=== PATIENT | male | born 1955 | race Caucasian/White ===

== ENCOUNTER 2020-01-31 08:15 | Outpatient (REF) | payer BC, SELFPAY ==
[2020-01-31 08:59] LABS: Basophils Absolute Auto 0.1 X10*3/uL (0.0-0.2); Basophils Percent Auto 0.9 % (0-2); Eosinophils Absolute Auto 0.1 X10*3/uL (0.0-0.4); Hematocrit 43.5 % (42-52); Hemoglobin 15.3 g/dl (14.0-18.0); Imm Gran Abs Auto 0.01 X10*3/uL (0.00-0.03); Imm Gran Pct Auto 0.2 % (0.0-0.4); Lymphocytes Absolute Auto 1.9 X10*3/uL (1.2-4.9); Lymphocytes Percent Auto 34.2 % (20-40); MANUAL DIFF FLAG NO; Mean Corpuscular HGB Conc 35.2 g/dl (31.0-36.0); Mean Corpuscular Hemoglobin 31.7 pg (27.0-33.0); Mean Corpuscular Volume 90.2 fL (80-98); Mean Platelet Volume 10.8 fL (9.4-12.4); Monocytes Absolute Auto 0.5 X10*3/uL (0.1-1.2); Monocytes Percent Auto 9.1 % (2-11); Neutrophils Percent Auto 53.6 % (45-73); Platelet Count 145 X10*3/uL (160-400); Red Blood Count 4.82 X10*6/uL (4.60-5.80); Red Cell Distribution Width 12.2 % (11.0-16.0); White Blood Count 5.6 X10*3/uL (4.8-10.8)
[2020-01-31 09:07] LABS: Glucose Urine UA NEG (NEG); Leukocyte Esterase Urine NEG (NEG); Nitrite Urine NEG (NEG); Urine Blood NEG (NEG); Urine Ketones NEG (NEG); Urine Protein NEG (NEG-TRACE)
[2020-01-31 09:08] LABS: Appearance Urine CLEAR; Color Urine YELLOW
[2020-01-31 09:46] LABS: Alanine Aminotransferase 29 U/L (0-40); Albumin Level 4.3 g/dL (3.5-5.0); Alkaline Phosphatase 51 U/L (39-117); Anion Gap 13 (12-20); Aspartate Amino Transferase 23 U/L (5-37); Bilirubin Direct 0.3 mg/dL (0.0-0.5); Bilirubin Total 0.9 mg/dL (0.0-1.0); Blood Urea Nitrogen 12 mg/dL (9-16); Carbon Dioxide 25 mmol/L (22-29); Chloride 107 mmol/L (96-108); Cholesterol 149 mg/dL; Glucose Fasting 103 mg/dL (60-99); HDL Cholesterol 40 mg/dL; LDL Cholesterol Calculated 90 mg/dl; Potassium 4.1 mmol/l (3.3-5.1); Sodium 141 mmol/L (135-145); Total Protein 6.8 g/dL (6.5-8.0); Triglycerides 96 mg/dL
[2020-01-31 10:06] LABS: Thyroid Stimulating Hormone 0.54 uIU/mL (0.32-4.0)
== END 2020-01-31 08:16 | disposition home or self-care (01) ==
LOC: HO.LAB 08:15
PROVIDERS: PCP Internal Medicine; Visit Provider Internal Medicine Cardiovascular Disease
DX: I25.10 Atherosclerotic heart disease of native coronary artery without angina pectoris (principal); I10 Essential (primary) hypertension; E78.2 Mixed hyperlipidemia
CPT/HCPCS: 36415; 80051; 80061; 80076; 81003; 82947; 83735; 84443; 84520; 85025

== ENCOUNTER 2021-12-27 07:06 | Outpatient (REF) | payer BC, SELFPAY ==
[2021-12-27 07:28] LABS: MANUAL DIFF FLAG NO
[2021-12-27 07:42] LABS: Basophils Absolute Auto 0.1 X10*3/uL (0.0-0.2); Basophils Percent Auto 1.3 % (0-2); Eosinophils Absolute Auto 0.2 X10*3/uL (0.0-0.4); Eosinophils Percent Auto 3.7 % (0-4); Hematocrit 46.7 % (42.0-52.0); Imm Gran Abs Auto 0.02 X10*3/uL (0.00-0.03); Imm Gran Pct Auto 0.3 % (0.0-0.4); Lymphocytes Absolute Auto 2.2 X10*3/uL (1.2-4.9); Lymphocytes Percent Auto 37.4 % (20-40); Mean Corpuscular HGB Conc 34.3 g/dl (31.0-36.0); Mean Corpuscular Hemoglobin 30.7 pg (27.0-33.0); Mean Corpuscular Volume 89.6 fL (80.0-98.0); Mean Platelet Volume 10.8 fL (9.4-12.4); Monocytes Absolute Auto 0.6 X10*3/uL (0.1-1.2); Neutrophils Absolute Auto 2.8 x10*3/uL (2.0-8.3); Neutrophils Percent Auto 47.3 % (45-73); Platelet Count 149 X10*3/uL (160-400); Red Blood Count 5.21 X10*6/uL (4.60-5.80)
[2021-12-27 07:51] LABS: Estimated Average Glucose 114 mg/dL; Hemoglobin A1c % 5.6 %
[2021-12-27 08:11] LABS: Alanine Aminotransferase 24 U/L (0-40); Albumin Level 4.2 g/dL (3.5-5.0); Alkaline Phosphatase 54 U/L (39-117); Anion Gap 16 (12-20); Aspartate Amino Transferase 24 U/L (5-37); Blood Urea Nitrogen 18 mg/dL (9-16); Calcium 9.3 mg/dL (8.4-10.2); Carbon Dioxide 23 mmol/L (22-29); Chloride 107 mmol/L (96-108); Cholesterol 180 mg/dL; Estimated Glomerular Filt Rate > 60; Glucose Random 97 mg/dL (60-115); HDL Cholesterol 39 mg/dL; LDL Cholesterol Calculated 119 mg/dl; Potassium 4.3 mmol/L (3.3-5.1); Sodium 142 mmol/L (135-145); Total Protein 6.9 g/dL (6.5-8.0); Triglycerides 111 mg/dL
== END 2021-12-27 07:07 | disposition home or self-care (01) ==
LOC: HO.LAB 07:06
PROVIDERS: PCP Internal Medicine; Visit Provider Internal Medicine Cardiovascular Disease
DX: I10 Essential (primary) hypertension (principal)
CPT/HCPCS: 36415; 80053; 80061; 83036; 85025

== ENCOUNTER 2022-03-17 07:33 | Outpatient (REF) | payer BC, SELFPAY ==
[2022-03-17 09:41] LABS: Cholesterol 144 mg/dL; HDL Cholesterol 40 mg/dL; LDL Cholesterol Calculated 84 mg/dl; Triglycerides 100 mg/dL
== END 2022-03-17 07:34 | disposition home or self-care (01) ==
LOC: HO.LAB 07:33
PROVIDERS: PCP Internal Medicine; Visit Provider Nurse Practitioner Family
DX: I10 Essential (primary) hypertension (principal)
CPT/HCPCS: 36415; 80061

== ENCOUNTER 2022-08-03 07:04 | Outpatient (REF) | payer BC, SELFPAY ==
[2022-08-03 08:06] LABS: Cholesterol 108 mg/dL; HDL Cholesterol 36 mg/dL; LDL Cholesterol Calculated 54 mg/dl; Triglycerides 91 mg/dL
== END 2022-08-03 07:05 | disposition home or self-care (01) ==
LOC: HO.LAB 07:04
PROVIDERS: PCP Internal Medicine; Visit Provider Nurse Practitioner Family
DX: I10 Essential (primary) hypertension (principal)
CPT/HCPCS: 36415; 80061

== ENCOUNTER 2022-10-24 07:07 | Outpatient (REF) | payer BC, SELFPAY ==
[2022-10-24 07:17] LABS: MANUAL DIFF FLAG NO
[2022-10-24 08:28] LABS: Basophils Percent Auto 0.7 % (0-2); Eosinophils Percent Auto 0.5 % (0-4); Hemoglobin 14.7 g/dl (14.0-18.0); Imm Gran Abs Auto 0.04 X10*3/uL (0.00-0.03); Imm Gran Pct Auto 0.7 % (0.0-0.4); Lymphocytes Absolute Auto 0.7 X10*3/uL (1.2-4.9); Lymphocytes Percent Auto 11.2 % (20-40); Mean Corpuscular HGB Conc 34.2 g/dl (31.0-36.0); Mean Corpuscular Volume 90.7 fL (80.0-98.0); Mean Platelet Volume 10.8 fL (9.4-12.4); Monocytes Absolute Auto 0.9 X10*3/uL (0.1-1.2); Monocytes Percent Auto 14.6 % (2-11); Neutrophils Absolute Auto 4.2 x10*3/uL (2.0-8.3); Neutrophils Percent Auto 72.3 % (45-73); Platelet Count 120 X10*3/uL (160-400); Red Blood Count 4.74 X10*6/uL (4.60-5.80); Red Cell Distribution Width 12.1 % (11.0-16.0); White Blood Count 5.8 X10*3/uL (4.8-10.8)
[2022-10-24 08:56] LABS: Alanine Aminotransferase 32 U/L (0-40); Alkaline Phosphatase 57 U/L (39-117); Anion Gap 13 (12-20); Aspartate Amino Transferase 26 U/L (5-37); Blood Urea Nitrogen 13 mg/dL (9-16); Carbon Dioxide 23 mmol/L (22-29); Chloride 108 mmol/L (96-108); Estimated Glomerular Filt Rate > 60; Glucose Fasting 104 mg/dL (60-99); Potassium 3.8 mmol/L (3.3-5.1); Sodium 140 mmol/L (135-145); Total Protein 6.8 g/dL (6.5-8.0)
[2022-10-24 09:14] LABS: Prostate Specific Antigen Scr 2.87 ng/mL (<0.05-4.0)
[2022-10-24 09:19] LABS: Thyroid Stimulating Hormone 0.27 uIU/mL (0.32-4.0)
== END 2022-10-24 07:08 | disposition home or self-care (01) ==
LOC: HO.LAB 07:07
PROVIDERS: PCP Internal Medicine; Visit Provider Internal Medicine
DX: Z00.00 Encounter for general adult medical examination without abnormal findings (principal); Z12.5 Encounter for screening for malignant neoplasm of prostate; E03.9 Hypothyroidism, unspecified; N28.9 Disorder of kidney and ureter, unspecified; D64.9 Anemia, unspecified
CPT/HCPCS: 36415; 80053; 84153; 84443; 85025

== ENCOUNTER 2022-10-26 10:43 | Outpatient (AMB) | payer BC, SELFPAY ==
--- NOTE | 2022-10-26 04:50 | MHC.OFFVIS ---
Intake Intake Visit Reasons: Frequency of Micturition Intake Note: NEW Patient presents today to established treatment for Frequency of Micturition: Meds- None Allergies to Antibiotic- No Known Allergies Blood Thinner- Aspirin Unable to void, PVR- 0ml Communication Analyst Required: No Accompanied by: Self / Same As Patient Allergies No Known Allergies Allergy (Verified 10/26/22 10:50) HPI HPI Comments History of Present Illness Details Elieser is a 67-year-old male who presents today to the office to establish as a new patient for an evaluation of frequency of micturition. 10/26/2022? Elieser is present today for an evaluation of frequency of micturition. I reviewed the PSA results from 10/24/2022 revealed 2.87. He reports intermittent nocturia. He states that he has urinary frequency, denies dysuria He is unable to give a urine specimen today. Bladder scan PVR - 0 mL PSA 10/24/22- 2.87 Plan: Renal US. Discussed behavioral modifications. Avoid dietary bladder irritants. Discussed medications to include but not limited to alpha blockers; will hold on these for now, pending lifestyle changes. Follow up in 3 months to discuss the US results. [facility] Surgical History History of heart artery stent Social History Housing: House Alcohol intake: never Patient Tobacco Use Status: Never used Tobacco e-Cigarette/Vaping Use: Never Used Second Hand Smoke Exposure: No service: No Current occupational status: employed Current occupation: sales Cognitive needs: No Hearing needs: No Vision needs: No Review of Systems Const All systems reviewed & are unremarkable except as noted in HPI and below Reports no additional complaints Eyes Reports no additional complaints ENT Reports no additional complaints Card Denies dyspnea Resp Denies cough and Denies dyspnea GI Reports no additional complaints Musc Reports no additional complaints Skin/Breast Denies rash and Denies unusual bruising Neuro Reports no additional complaints Psych Reports no additional complaints Endo Reports no additional complaints Ahsan/Lymph Reports no additional complaints Aller/Immun Reports no additional complaints Physical Exam Const General: healthy appearing, no acute distress and well developed Orientation/consciousness: patient oriented x3 HEENT Head: Yes normocephalic and Yes atraumatic Eyes Conjunctivae: conjunctivae normal Neck Neck: Yes normal visual inspection Chest Chest palpation & inspection: normal inspection of the chest Resp Effort & Inspection: normal respiratory effort Cardio Rate: regular rate GI Inspection: Yes normal to inspection Palpation (GI): Soft to palpation Skin General skin exam: no rashes or lesions noted Neuro General: patient oriented x3 Extrem General: No pedal edema Psych Appearance: grossly normal Affect: normal affect Office Procedures Post Void Residual Post Residual Void Post Void Residual (PVR): 0 16415-Npuu Void Residual by ultrasound Assessment & Plan Assessment & Plan (1) Urinary frequency: Code(s): R35.0 - Frequency of micturition (2) Nocturia: Code(s): R35.1 - Nocturia (3) BPH loc w urin obs/LUTS: Code(s): N40.1 - Benign prostatic hyperplasia with lower urinary tract symptoms Plan Renal US. Discussed behavioral modifications. Avoid dietary bladder irritants. Discussed medications to include but not limited to alpha blockers; will hold on these for now, pending lifestyle changes. Follow up in 3 months to discuss the US results. Orders: Orders AMB Urinalysis Automated 10/26/22 Z13.9 - Encounter for screening, unspecified AMB Post Void Residual by ultrasound 10/26/22 N39.8 - Other specified disorders of urinary system US retroperitoneal comp 10/26/22 R35.0 - Frequency of micturition, R35.1 - Nocturia, N40.1 - Benign prostatic hyperplasia with lower urinary tract symptoms Patient Instructions: The patient had an opportunity to ask questions regarding treatment plan. All questions were answered. Imaging, Laboratory studies and physical exam results were discussed and reviewed in detail. No major barriers to understanding were identified. The patient expressed understanding and agreement with the above treatment plan.? ? ? The patient is aware they should contact our office by phone for worsening of their current condition or the appearance of new symptoms. Compliance is encouraged with any medications and followup testing that is ordered.? ? ? It is a privilege to be allowed the opportunity to participate in the urologic care of your patient. If you have any questions or concerns regarding treatment for the above conditions please do not hesitate to contact me. The office telephone contact is [phone].? ? ? This note is constructed in part using voice recognition software. While every effort has been made to ensure accuracy senior db2 systems programmer errors may have been included.? ? ? Yours sincerely,? ? ? Iris Truong MD? Coding Level of Care Code New Pt Level 3 (22630) Diagnoses Urinary frequency R35.0 Nocturia R35.1 BPH loc w urin obs/LUTS N40.1 CPT Codes Post Residual Void - PVR CPT Code: 90533-Uhrg Void Residual by ultrasound ([id number])
== END 2022-10-26 12:02 | disposition home or self-care (01) ==
PROVIDERS: PCP Internal Medicine; Visit Provider Urology
DX: N40.1 Benign prostatic hyperplasia with lower urinary tract symptoms (principal); R35.0 Frequency of micturition; R35.1 Nocturia
CPT/HCPCS: 99203

== ENCOUNTER → 2022-10-26 10:43 | Outpatient (BNVA) | payer BC, SELFPAY | PROVIDERS: PCP Internal Medicine; Visit Provider Urology | DX: N40.1 Benign prostatic hyperplasia with lower urinary tract symptoms (principal); N13.8 Other obstructive and reflux uropathy; R35.0 Frequency of micturition; R35.1 Nocturia | CPT/HCPCS: 51798 ==

== ENCOUNTER 2023-01-12 10:46 | Outpatient (REF) | payer BC, SELFPAY ==
[2023-01-12 11:01] LABS: MANUAL DIFF FLAG NO
[2023-01-12 11:40] LABS: Basophils Absolute Auto 0.1 X10*3/uL (0.0-0.2); Basophils Percent Auto 1.2 % (0-2); Eosinophils Absolute Auto 0.2 X10*3/uL (0.0-0.4); Eosinophils Percent Auto 3.1 % (0-4); Hematocrit 45.8 % (42.0-52.0); Hemoglobin 15.9 g/dl (14.0-18.0); Imm Gran Abs Auto 0.01 X10*3/uL (0.00-0.03); Imm Gran Pct Auto 0.1 % (0.0-0.4); Lymphocytes Absolute Auto 2.4 X10*3/uL (1.2-4.9); Lymphocytes Percent Auto 35.4 % (20-40); Mean Corpuscular HGB Conc 34.7 g/dl (31.0-36.0); Mean Corpuscular Hemoglobin 32.1 pg (27.0-33.0); Mean Corpuscular Volume 92.5 fL (80.0-98.0); Mean Platelet Volume 11.1 fL (9.4-12.4); Monocytes Absolute Auto 0.6 X10*3/uL (0.1-1.2); Monocytes Percent Auto 8.3 % (2-11); Neutrophils Absolute Auto 3.5 x10*3/uL (2.0-8.3); Neutrophils Percent Auto 51.9 % (45-73); Platelet Count 154 X10*3/uL (160-400); Red Blood Count 4.95 X10*6/uL (4.60-5.80); Red Cell Distribution Width 12.5 % (11.0-16.0); White Blood Count 6.7 X10*3/uL (4.8-10.8)
[2023-01-12 11:49] LABS: INTERNATIONAL NORM RATIO 1.1 (0.9-1.1)
[2023-01-18 15:23] LABS: FIB-ALT 22 U/L (9-46); FIB-Alpha-2-Macroglobulin 171 mg/dL (106-279); FIB-Apolipoprotein A1 141 mg/dL (94-176); FIB-GGT 13 U/L (3-70); FIB-Haptoglobin 113 mg/dL (43-212); FIB-Total Bilirubin 0.7 mg/dL (0.2-1.2); Liver Fibrosis Score 0.26; Liver Fibrosis Stage F0-F1; Nec Inflam Act Grade A0; Nec Inflam Act Score 0.09
== END 2023-01-12 10:47 | disposition home or self-care (01) ==
LOC: HO.LAB 10:46
PROVIDERS: PCP Internal Medicine; Visit Provider Internal Medicine
DX: D69.6 Thrombocytopenia, unspecified (principal); F10.11 Alcohol abuse, in remission
CPT/HCPCS: 36415; 81596; 85025; 85610

== ENCOUNTER 2023-04-10 11:34 | Day surgery (SDC) | payer BC, SELFPAY ==
[2023-04-06 13:51] VITALS: BMI 30.7
[2023-04-10 11:16] VITALS: BMI 30.9
[2023-04-10 11:20] VITALS: BP 159/91; PULSE 75; RESP 16; TEMP 36.1; O2SAT 94
[2023-04-10] MEDS: Lactated Ringers 1,000 ML 100 ML IVCONT (11:29)
--- NOTE | 2023-04-10 11:40 | HO.ANESPROP2 ---
Documented by User: Polina Abdi NP 04/07/23 13:03 HPI - Anesthesia Eval Consult details Narrative: 67yo M for Colonoscopy Hx CAD, [place] 2002. Follows with [facility]. LM for last office visit to be faxed to us. Pt states last seen within this month. PMFSH Active Problems Active Problems: All Active Problems (Updated 04/06/23 @ 13:50 by Ariana Mccauley RN) BPH loc w urin obs/LUTS (Acute) Nocturia (Acute) Urinary frequency (Acute) Physical exam (Acute) Hyperlipidemia (Acute) Hyperlipidemia associated with type 2 diabetes mellitus (Acute) Hypertension (Acute) Pre-op exam (Acute) Past Medical History Medical History (Updated 04/10/23 @ 11:33 by Felisha Garzon RN) ETOH abuse Thrombocytopenia Myocardial infarction Elevated cholesterol HTN (hypertension) CAD (coronary artery disease) Surgical History Surgical History (Updated 04/06/23 @ 13:45 by Ariana Mccauley RN) Hx of hand surgery Hx of right inguinal hernia repair H/O colonoscopy History of heart artery stent Social History Social History (Updated 04/06/23 @ 13:46 by Ariana Mccauley RN) Housing: House Alcohol intake: never Patient Tobacco Use Status: Never used Tobacco e-Cigarette/Vaping Use: Never Used Second Hand Smoke Exposure: No Use of substances other than those prescribed or required for medical reasons: No Are you DNR?: No Advance Directives: No Advance Directives Information Provided: Yes Advance Directives on File: No service: No Current occupational status: employed Current occupation: sales Cognitive needs: No Hearing needs: No Vision needs: No Meds Allergies Allergy/AdvReac Type Severity Reaction Status Date / Time No Known Allergies Allergy Verified 10/26/22 10:50 Home Medications Medication Instructions Recorded Confirmed Last Taken Type ezetimibe 10 mg tablet 10 mg PO DAILY 08/04/22 04/06/23 Unknown History Exam Height,Weight and Vital Signs: Height 5 ft 7 in Weight 88.904 kg Pertinent Lab Results Pertinent Lab Results: Laboratory Tests 10/24/22 01/12/23 07:16 10:56 WBC 6.7 Hgb 15.9 Hct 45.8 Plt Count 154 L D Sodium 140 Potassium 3.8 Chloride 108 Carbon Dioxide 23 BUN 13 Creatinine 0.90 Assessment and Plan Assessment Anesthesia Assessment: Chart Reviewed Documented by User: Kasey Vallejo DO 04/10/23 11:43 PMFSH Past Medical History Medical History (Updated 04/10/23 @ 11:33 by Felisha Garzon RN) ETOH abuse Thrombocytopenia Myocardial infarction Elevated cholesterol HTN (hypertension) CAD (coronary artery disease) Family History Family history of problems with anesthesia: No Surgical History Surgical History (Updated 04/06/23 @ 13:45 by Ariana Mccauley RN) Hx of hand surgery Hx of right inguinal hernia repair H/O colonoscopy History of heart artery stent History of Problems with Anesthesia: No Social History Social History (Updated 04/06/23 @ 13:46 by Ariana Mccauley RN) Housing: House Alcohol intake: never Patient Tobacco Use Status: Never used Tobacco e-Cigarette/Vaping Use: Never Used Second Hand Smoke Exposure: No Use of substances other than those prescribed or required for medical reasons: No Are you DNR?: No Advance Directives: No Advance Directives Information Provided: Yes Advance Directives on File: No service: No Current occupational status: employed Current occupation: sales Cognitive needs: No Hearing needs: No Vision needs: No Meds Allergies Allergy/AdvReac Type Severity Reaction Status Date / Time No Known Allergies Allergy Verified 10/26/22 10:50 Home Medications Medication Instructions Recorded Confirmed Last Taken Type ezetimibe 10 mg tablet 10 mg PO DAILY 08/04/22 04/06/23 Unknown History Exam Exam Date and Time: April 10, 2023 1125 Height,Weight and Vital Signs: Height 5 ft 7 in Weight 88.904 kg Height 5 ft 7 in Weight 89.414 kg Vital Signs Temperature 97.0 F 04/10/23 11:20 Pulse Rate 75 04/10/23 11:20 Respiratory Rate 16 04/10/23 11:20 Blood Pressure 159/91 H 04/10/23 11:20 Pulse Oximetry 94 04/10/23 11:20 Oxygen Delivery Method Room Air 04/10/23 11:20 Temperature 97.0 F 02/12/24 11:20 Pulse Rate 75 04/10/23 11:20 Respiratory Rate 16 04/10/23 11:20 Blood Pressure 159/91 H 04/10/23 11:20 Pulse Oximetry 94 04/10/23 11:20 Oxygen Delivery Method Room Air 04/10/23 11:20 Airway Mallampati Class: III TM Dist: >3cm Neck ROM: Full Loose/Missing/Broken Teeth: No Heart: S1S2 Lungs: CTAB Assessment and Plan Assessment Anesthesia Assessment: Anesthesia Plan Discussed and Chart Reviewed Final Anesthetic Review Family History of Problems with Anesthesia: No History of Problems with Anesthesia: No NPO: Yes ASA Class: III Final Preanesthetic Review: No Changes in Pt Med Stat, Meds/Allgs Chart Reviewed, Consent Obtained/Reviewed and Anes Risks/Benef Reviewed Patient Risk: Intermediate Procedure Risk: Low Anesthetic Plan Anesthetic Plan: MAC: and Agree w/ Assess. and Plan Disposition: Standard PACU
[2023-04-10 12:35] VITALS: BP 103/64; PULSE 72; RESP 16; TEMP 36.1; O2SAT 94
--- NOTE | 2023-04-10 12:39 | P.BOP_ITS ---
Brief Operative Note Date of Service: 04/10/23 Pre-op diagnosis: Screening Post-op diagnosis: other (Polyp) Procedure: Colonoscopy to the cecum with hot snare polypectomy x 1 with placement of 3 Resolution clips Surgeon: Panchito Floyd MD Anesthesia: MAC Was an Motorcycle Delivery Driver used for this Procedure?: No Estimated blood loss (mL): 0 Pathology: other (A. Transverse colon polyp) Condition: stable Disposition: PACU
[2023-04-10 12:50] VITALS: BP 125/93; PULSE 77; RESP 18; TEMP 36.7; O2SAT 95
--- NOTE | 2023-04-10 13:16 | OP_ITS ---
DATE OF SERVICE: 04/10/2023 SURGEON: Panchito Floyd MD INDICATIONS: The patient presents for evaluation of colorectal cancer screening. Full consent obtained from him for this, including risks of bleeding and perforation. PREOPERATIVE DIAGNOSIS: Colorectal cancer screening. POSTOPERATIVE DIAGNOSIS: PROCEDURE PERFORMED: Colonoscopy to cecum with hot snare polypectomy and placement of 3 Resolution clips on the polypectomy site. ESTIMATED BLOOD LOSS: COMPLICATIONS: ANESTHESIA: Medication used, monitored anesthesia care. ASSISTANTS: SPECIMENS: POSTOPERATIVE DIAGNOSES: Colorectal cancer screening, colon polyp, mild diverticulosis, and internal hemorrhoids. DESCRIPTION OF PROCEDURE: The patient was placed in the left lateral decubitus position. The digital rectal exam revealed no abnormalities. The Olympus video pediatric colonoscope was entered into the rectum and advanced to the cecum with the assistance of abdominal wall pressure. Once in the cecum, I did identify normal-appearing cecal pouch with appendiceal orifice and a normal-appearing ileocecal valve. There was transillumination of light deep in the right lower quadrant. The entire cecum and ileocecal valve appeared normal. The scope was slowly withdrawn assessing all mucosal surfaces carefully. Preparation was excellent. In the region of the transverse colon was an approximately 10 mm raised polyp, which was removed by hot snare polypectomy, recovered by suction. The polypectomy site appeared clean, without any sign of residual polyp nor bleeding. Three Resolution clips were applied with good deployment and good hemostasis. I did not visualize any other polyps, colitis, or angiodysplasia. There was a mild amount of sigmoid diverticulosis. In the rectum, scope was retroflexed visualizing internal hemorrhoids, but no other pathology. The rectal mucosa appeared normal. The scope was straightened and withdrawn from the patient. He tolerated the procedure well and was returned to recovery area in stable condition. IMPRESSION: 1. Colon polyp. 2. Diverticulosis. 3. Internal hemorrhoids. PLAN: The results of the pathology will be checked. If this is a tubular adenoma, I would recommend a followup colonoscopy in 5 years. If it is only hyperplastic, I would recommend a followup coloscopy in 10 years. He was advised to resume his aspirin in 24 hours. He was advised not to use any NSAIDs for at least 1 week. He did have a recent PT with INR that was normal, a liver fibrosis score of only F0 to F1, and a normal CBC except for a borderline platelet count of 154,000. Previous LFTs were normal. He was supposed to have had an abdominal ultrasound to evaluate the liver and spleen due to the thrombocytopenia, but I do not see any record of that having been done and we will need to check on that. MD MONICA Valles/HIEN / [id number]
== END 2023-04-10 13:19 | disposition home or self-care (01) ==
PROVIDERS: PCP Internal Medicine; Visit Provider Internal Medicine
PROC: 0DJD8ZZ Inspection of Lower Intestinal Tract, Via Natural or Artificial Opening Endoscopic (ICD-10-PCS; CPT 45378; principal; 2023-04-10 12:30)
DX: Z12.11 Encounter for screening for malignant neoplasm of colon (principal); D12.3 Benign neoplasm of transverse colon; K57.30 Diverticulosis of large intestine without perforation or abscess without bleeding; K64.8 Other hemorrhoids; D69.6 Thrombocytopenia, unspecified; I25.2 Old myocardial infarction; Z95.5 Presence of coronary angioplasty implant and graft; I10 Essential (primary) hypertension; E78.00 Pure hypercholesterolemia, unspecified; F10.11 Alcohol abuse, in remission; Z79.899 Other long term (current) drug therapy; Z79.82 Long term (current) use of aspirin
CPT/HCPCS: 45385; 88305; J2704

== ENCOUNTER 2023-09-11 08:15 | Outpatient (AMB) | payer BC, SELFPAY ==
--- NOTE | 2023-09-11 08:23 | A.OFFPC_ITS ---
Vital Signs 09/11/23 08:24 Height 5 ft 7 in Weight 197 lb BMI 30.9 BP 122/70 Blood Pressure Location Lt brachial Position Sitting Pulse 78 Pulse Source Pulse Oximeter Pulse Oximetry (%) 97 Oxygen Delivery Method Room Air Intake Visit Reasons: pe Cephalometric Analyst Required: No Accompanied by: Self / Same As Patient Allergies No Known Allergies Allergy (Verified 09/11/23 08:24) Medication List - Last Reconciled 09/11/23 by Erasto Otero MD aspirin 81 mg PO DAILY atorvastatin 20 mg PO DAILY carvedilol 12.5 mg PO BID ezetimibe 10 mg PO DAILY lisinopril 5 mg PO DAILY Tobacco use date assessed: 09/11/23 Fall risk assessment: No Falls in past year Last assessed Fall Risk: 09/11/23 Dental Screening Dental Screen Date: 09/11/23 Did you have a dental visit in the last 12 months?: Yes Did you have a dental problem in the last 6 months where you did not have access to dental care?: No Was dental information given to patient?: Patient has dentist HPI pe HPI Details HTN and hyperlip on rx; doing well PFSH Medical History (Updated 04/10/23 @ 11:33 by Felisha Garzon RN) ETOH abuse Thrombocytopenia Myocardial infarction Elevated cholesterol HTN (hypertension) CAD (coronary artery disease) Surgical History (Updated 04/06/23 @ 13:45 by Ariana Mccauley RN) Hx of hand surgery Hx of right inguinal hernia repair H/O colonoscopy History of heart artery stent Social History (Updated 04/06/23 @ 13:46 by Ariana Mccauley RN) Housing: House Alcohol intake: never Patient Tobacco Use Status: Never used Tobacco e-Cigarette/Vaping Use: Never Used Second Hand Smoke Exposure: No service: No Current occupational status: employed Current occupation: sales Cognitive needs: No Hearing needs: No Vision needs: No Questionnaire PHQ-9 Over the last 2 weeks, how often have you been bothered by any of the following problems? 1. Little interest or pleasure in doing things: not at all 2. Feeling down, depressed, or hopeless: not at all 3. Trouble falling or staying asleep, or sleeping too much: not at all 4. Feeling tired or having little energy: not at all 5. Poor appetite or overeating: not at all 6. Feeling bad about yourself - or that you are a failure or have let yourself or your family down: not at all 7. Trouble concentrating on things, such as reading the newspaper or watching television: not at all 8. Moving or speaking so slowly that other people could have noticed. Or the opposite - being so fidgety or restless that you have been moving around a lot more than usual: several days 9. Thoughts that you would be better off or of hurting yourself in some way: not at all Total score: 1 Depression Screening Interpretation: Negative Depression Screening Done: Yes 73730 - PHQ-9 Billing: Yes Source: Developed by Drs. Panchito Monreal, Delaney Salgado, Brett Chavez and colleagues, with an educational sidney from [employer]. Thrive Questionnaire Date Thrive assessed: 09/11/23 I am a: Patient What is your living situation today?: I have a steady place to live Within the past 12 months, did the food you bought not last and you didn't have the money to get more?: Never true Within the past 12 months, did you worry whether your food would run out before you got money to buy more?: Never true Do you have trouble paying for medicines?: No Do you have trouble getting transportation to medical appointments?: No Do you have trouble paying your heating and electricity bill?: No Do you have trouble taking care of your child, family member or friend?: No Do you have trouble with day-to-day activities such as bathing, preparing meals, shopping, managing finances, etc.?: No Are you currently unemployed and looking for a job?: No Are you interested in more education?: No Please select the resources that you would like help with: None Currently or been in a relationship where the following occur: No concerns reported THRIVE Score: 0 AUDIT C Alcohol Use Questionnaire (AUDIT-C) 1. How often do you have a drink containing alcohol?: Never Total Score: 0 Score Reviewed/Action Taken: Yes NINA-7 AMB Questionnaire NINA-7 Date NINA - 7 assessed: 09/11/23 Feeling nervous, anxious, or on edge: 0 = Not at all Not being able to stop or control worryin = Not at all Worrying too much about different things: 0 = Not at all Trouble relaxin = Not at all Being so restless that it is hard to sit still: 0 = Not at all Becoming easily annoyed or irritable: 0 = Not at all Feeling afraid as if something awful might happen: 0 = Not at all Total NINA-7 score (0-4 normal; 5-9 mild; 10-14 moderate; 15-21 severe): 0 Source: Developed by Drs. Panchito Monreal, Delaney Salgado, Brett Chavez and colleagues, with an educational sidney from [employer]. NINA-7 Assessment Billing NINA-7 Assessment Tool: NINA-7 Assessment 53058 Review of Systems Const Denies chills, Denies fatigue, Denies headache(s) and Denies weight loss Eyes Denies change in vision, Denies diplopia and Denies eye pain ENT Denies vertigo, Denies dizziness, Denies headache(s) and Denies nasal discharge Card Denies chest pain, Denies rapid heart rate and Denies dyspnea on exertion Resp Denies chest congestion, Denies cough, Denies pain with cough and Denies dyspnea on exertion GI Denies abdominal pain, Denies hematochezia and Denies change in bowel habits Musc Denies myalgias, Denies arthralgias and Denies joint swelling Skin/Breast Denies lesions and Denies unusual bruising Neuro Denies vertigo, Denies dizziness, Denies headache(s) and Denies focal weakness Endo Denies fatigue Physical exam (Primary Care) Vital Signs: Last Vital Signs Pulse 78 09/11/23 08:24 BP 122/70 09/11/23 08:24 Pulse Ox 97 09/11/23 08:24 Oxygen Delivery Method Room Air 09/11/23 08:24 BMI result Body Mass Index 30.9 Tobacco/Smoking Status: Tobacco use Status Tobacco use date assessed 09/11/23 09/11/23 08:28 Patient Tobacco Use Status Never used Tobacco 09/11/23 08:28 e-Cigarette/Vaping Use Never Used 09/11/23 08:28 PHQ-9: PHQ-9 Score PHQ-9: Total score 1 09/11/23 08:28 Depression Screening Interpretation: Negative Thrive Assessment: Date of Thrive Assessment Date Thrive assessed 09/11/23 09/11/23 08:28 Currently or been in a relationship where the following occur: No concerns reported Const General: cooperative, healthy appearing and no acute distress Orientation/consciousness: oriented to person, oriented to place and oriented to time HENMT Head: Yes normal to inspection, Yes normocephalic and Yes atraumatic Mouth: Normal oral and palatal mucosa present and tongue normal Throat: Yes posterior oropharynx normal and Yes uvula midline Eyes General: appearance normal, both eyes and all related structures Neck Neck: Yes normal visual inspection, Yes full ROM and Yes no lymphadenopathy Thyroid: Thyroid normal Carotids: normal carotid upstroke Chest Chest palpation & inspection: normal inspection of the chest Resp Effort & Inspection: normal respiratory effort and able to speak in complete sentences Auscultation: clear to auscultation bilaterally Cardio Jugular venous distension: no JVD Palpation: normal PMI Rate: regular rate Rhythm: regular rhythm Heart sounds: S1 normal heart sound present and S2 normal heart sound present GI Inspection: Yes normal to inspection Palpation (GI): Soft to palpation and No hepatosplenomegaly present Auscultation: normal bowel sounds General: Yes no CVA tenderness Back/Spine/Pelvis Back: no CVA tenderness Skin General skin exam: no rashes or lesions noted Neuro General: oriented to person, oriented to place and oriented to time Extrem General: Yes normal to inspection and Yes full ROM Assessment and Plan Assessment & Plan (1) Physical exam: Code(s): Z00.00 - Encounter for general adult medical examination without abnormal findings Plan: stable; do labs (2) Hyperlipidemia: Code(s): E78.5 - Hyperlipidemia, unspecified Plan: stable; same rx (3) Hypertension: Code(s): I10 - Essential (primary) hypertension Plan: stable; same rx Orders: Orders Lipid Panel Today Z13.220 - Encounter for screening for lipoid disorders Complete Blood Count Auto Diff Today Z13.0 - Encounter for screening for diseases of the blood and blood-forming organs and certain disorders involving the immune mechanism Prostate Specific Antigen Scr Today Z00.00 - Encounter for general adult medical examination without abnormal findings Comprehensive Hindman. Panel Fast Today Z13.9 - Encounter for screening, unspecified Thyroid Stimulating Hormone Today Z13.29 - Encounter for screening for other suspected endocrine disorder Referrals Dermatology Referral R22.9 - Localized swelling, mass and lump, unspecified Coding Level of Care Code Est Pt Prev Care >65y(55726) Diagnoses Physical exam Z00.00 Hyperlipidemia E78.5 Hypertension I10 Additional Codes NINA-7 Assessment Billing - NINA-7 Assessment Tool: NINA-7 Assessment 45032 ([id number])
[2023-09-11 08:24] VITALS: BP 122/70; PULSE 78; O2SAT 97; BMI 30.9
== END 2023-09-11 09:00 | disposition home or self-care (01) ==
PROVIDERS: PCP Internal Medicine; Visit Provider Internal Medicine
DX: Z00.00 Encounter for general adult medical examination without abnormal findings (principal); E78.5 Hyperlipidemia, unspecified; I10 Essential (primary) hypertension
CPT/HCPCS: 99397

== ENCOUNTER 2024-03-11 07:23 | Outpatient (REF) | payer BC, SELFPAY ==
[2024-03-11 07:38] LABS: MANUAL DIFF FLAG NO
[2024-03-11 08:17] LABS: Basophils Absolute Auto 0.1 X10*3/uL (0.0-0.2); Basophils Percent Auto 1.2 % (0-2); Eosinophils Absolute Auto 0.2 X10*3/uL (0.0-0.4); Eosinophils Percent Auto 2.4 % (0-4); Hematocrit 45.2 % (42.0-52.0); Hemoglobin 16.1 g/dl (14.0-18.0); Imm Gran Abs Auto 0.02 X10*3/uL (0.00-0.03); Imm Gran Pct Auto 0.3 % (0.0-0.4); Lymphocytes Absolute Auto 2.4 X10*3/uL (1.2-4.9); Lymphocytes Percent Auto 32.4 % (20-40); Mean Corpuscular HGB Conc 35.6 g/dl (31.0-36.0); Mean Corpuscular Hemoglobin 31.6 pg (27.0-33.0); Mean Corpuscular Volume 88.8 fL (80.0-98.0); Mean Platelet Volume 10.8 fL (9.4-12.4); Monocytes Absolute Auto 0.7 X10*3/uL (0.1-1.2); Monocytes Percent Auto 9.2 % (2-11); Neutrophils Absolute Auto 4.1 x10*3/uL (2.0-8.3); Neutrophils Percent Auto 54.5 % (45-73); Platelet Count 161 X10*3/uL (160-400); Red Blood Count 5.09 X10*6/uL (4.60-5.80); Red Cell Distribution Width 12.4 % (11.0-16.0); White Blood Count 7.5 X10*3/uL (4.8-10.8)
[2024-03-11 08:43] LABS: Alanine Aminotransferase 33 U/L (0-40); Albumin Level 4.1 g/dL (3.5-5.0); Alkaline Phosphatase 69 U/L (39-117); Anion Gap 10 (12-20); Aspartate Amino Transferase 25 U/L (5-37); Blood Urea Nitrogen 13 mg/dL (9-16); Calcium 9.4 mg/dL (8.4-10.2); Carbon Dioxide 26 mmol/L (22-29); Chloride 111 mmol/L (96-108); Cholesterol 111 mg/dL (<200); Estimated Glomerular Filt Rate > 60; Glucose Fasting 104 mg/dL (60-99); HDL Cholesterol 39 mg/dL (>40); LDL Cholesterol Calculated 52 mg/dL (<100); Sodium 143 mmol/L (135-145); Total Protein 6.9 g/dL (6.5-8.0); Triglycerides 104 mg/dL (<150)
[2024-03-11 08:57] LABS: Prostate Specific Antigen Scr 3.16 ng/mL (<0.05-4.0)
[2024-03-11 08:59] LABS: Thyroid Stimulating Hormone 1.01 uIU/mL (0.32-4.0)
== END 2024-03-11 07:24 | disposition home or self-care (01) ==
LOC: HO.LAB 07:23
PROVIDERS: PCP Internal Medicine; Visit Provider Internal Medicine
DX: Z00.00 Encounter for general adult medical examination without abnormal findings (principal); Z13.0 Encounter for screening for diseases of the blood and blood-forming organs and certain disorders involving the immune mechanism; Z13.220 Encounter for screening for lipoid disorders; Z13.9 Encounter for screening, unspecified; Z13.29 Encounter for screening for other suspected endocrine disorder; Z12.5 Encounter for screening for malignant neoplasm of prostate
CPT/HCPCS: 36415; 80053; 80061; 84153; 84443; 85025

== ENCOUNTER 2024-03-18 14:14 | Outpatient (AMB) | payer BC, SELFPAY ==
--- NOTE | 2024-03-18 14:24 | MHC.PC.OV ---
Vital Signs 03/18/24 14:26 Height 5 ft 7 in Weight 201 lb 2 oz BMI 31.5 BP 130/72 Blood Pressure Location Lt brachial Position Sitting Pulse 85 Pulse Source Pulse Oximeter Temp 97.3 F Temp Source Skin Pulse Oximetry (%) 97 Oxygen Delivery Method Room Air Intake Visit Reasons: 6mth f/u Intake Note: Patient is here to follow up on HTN, HLD. Insurance Risk Analyst Required: No [employer] Car Loader: Not Required per policy Accompanied by: Self / Same As Patient Allergies No Known Allergies Allergy (Verified 03/18/24 14:26) Medication List - Last Reconciled 03/19/24 by Erasto Otero MD aspirin 81 mg PO DAILY atorvastatin 20 mg PO DAILY carvedilol 12.5 mg PO BID ezetimibe 10 mg PO DAILY lisinopril 5 mg PO DAILY Tobacco use date assessed: 03/18/24 Fall risk assessment: No Falls in past year Last assessed Fall Risk: 03/18/24 Dental Screening Dental Screen Date: 03/18/24 Did you have a dental visit in the last 12 months?: Yes Did you have a dental problem in the last 6 months where you did not have access to dental care?: No Was dental information given to patient?: Patient has dentist HPI 6mth f/u HPI Details hyperlipidemia on rx; doing well and compliant [facility] Medical History (Updated 04/10/23 @ 11:33 by Felisha Garzon RN) ETOH abuse Thrombocytopenia Myocardial infarction Elevated cholesterol HTN (hypertension) CAD (coronary artery disease) Surgical History Hx of hand surgery Hx of right inguinal hernia repair H/O colonoscopy History of heart artery stent Social History Housing: House Alcohol intake: never Patient Tobacco Use Status: Never used Tobacco e-Cigarette/Vaping Use: Never Used Second Hand Smoke Exposure: No service: No Current occupational status: employed Current occupation: sales Cognitive needs: No Hearing needs: No Vision needs: No Questionnaire PHQ-9 Over the last 2 weeks, how often have you been bothered by any of the following problems? 1. Little interest or pleasure in doing things: not at all 2. Feeling down, depressed, or hopeless: not at all 3. Trouble falling or staying asleep, or sleeping too much: not at all 4. Feeling tired or having little energy: not at all 5. Poor appetite or overeating: not at all 6. Feeling bad about yourself - or that you are a failure or have let yourself or your family down: not at all 7. Trouble concentrating on things, such as reading the newspaper or watching television: not at all 8. Moving or speaking so slowly that other people could have noticed. Or the opposite - being so fidgety or restless that you have been moving around a lot more than usual: not at all 9. Thoughts that you would be better off or of hurting yourself in some way: not at all Total score: 0 Depression Screening Interpretation: Negative Depression Screening Done: Yes Source: Developed by Drs. Panchito Monreal, Delaney Salgado, Brett Chavez and colleagues, with an educational sidney from [employer]. Thrive Questionnaire Date Thrive assessed: 03/18/24 I am a: Patient What is your living situation today?: I have a steady place to live Within the past 12 months, did the food you bought not last and you didn't have the money to get more?: Never true Within the past 12 months, did you worry whether your food would run out before you got money to buy more?: Never true Do you have trouble paying for medicines?: No Do you have trouble getting transportation to medical appointments?: No Do you have trouble paying your heating and electricity bill?: No Do you have trouble taking care of your child, family member or friend?: No Do you have trouble with day-to-day activities such as bathing, preparing meals, shopping, managing finances, etc.?: No Are you currently unemployed and looking for a job?: No Are you interested in more education?: No Please select the resources that you would like help with: None Currently or been in a relationship where the following occur: No concerns reported THRIVE Score: 0 AUDIT C Alcohol Use Questionnaire (AUDIT-C) 1. How often do you have a drink containing alcohol?: Never Total Score: 0 NINA-7 AMB Questionnaire NINA-7 Date NINA - 7 assessed: 03/18/24 Feeling nervous, anxious, or on edge: 0 = Not at all Not being able to stop or control worryin = Not at all Worrying too much about different things: 0 = Not at all Trouble relaxin = Not at all Being so restless that it is hard to sit still: 0 = Not at all Becoming easily annoyed or irritable: 0 = Not at all Feeling afraid as if something awful might happen: 0 = Not at all Total NINA-7 score (0-4 normal; 5-9 mild; 10-14 moderate; 15-21 severe): 0 Source: Developed by Drs. Panchito Monreal, Delaney Salgado, Brett Chavez and colleagues, with an educational sidney from [employer]. Review of Systems Const Denies chills, Denies headache(s) and Denies weight loss ENT Denies headache(s) Card Denies chest pain, Denies syncope, Denies irregular heart rhythm and Denies dyspnea Resp Denies chest congestion, Denies cough and Denies dyspnea GI Denies abdominal pain, Denies change in stool character, Denies nausea and Denies vomiting Musc Denies deformity and Denies joint swelling Neuro Denies syncope and Denies headache(s) Physical exam (Primary Care) Vital Signs: Last Vital Signs Temp 97.3 F 03/18/24 14:26 Pulse 85 03/18/24 14:26 BP 130/72 03/18/24 14:26 Pulse Ox 97 03/18/24 14:26 Oxygen Delivery Method Room Air 03/18/24 14:26 BMI result Body Mass Index 31.5 Tobacco/Smoking Status: Tobacco use Status Tobacco use date assessed 03/18/24 03/18/24 14:31 Patient Tobacco Use Status Never used Tobacco 03/18/24 14:25 e-Cigarette/Vaping Use Never Used 03/18/24 14:25 PHQ-9: PHQ-9 Score PHQ-9: Total score 0 03/18/24 14:25 Depression Screening Interpretation: Negative Thrive Assessment: Date of Thrive Assessment Date Thrive assessed 03/18/24 03/18/24 14:25 Currently or been in a relationship where the following occur: No concerns reported Const General: cooperative, comfortable, no acute distress and alert Neck Neck: Yes no lymphadenopathy Thyroid: Thyroid normal Resp Effort & Inspection: normal respiratory effort Auscultation: clear to auscultation bilaterally Percussion: percussion normal Cardio Jugular venous distension: no JVD Palpation: normal PMI Rate: regular rate Rhythm: regular rhythm Heart sounds: S1 normal heart sound present and S2 normal heart sound present GI Inspection: Yes normal to inspection Palpation (GI): No hepatosplenomegaly present Skin General skin exam: no rashes or lesions noted Extrem General: Yes no clubbing, cyanosis or edema Coding Level of Care Code Est Pt Level 3 (34117) Diagnoses Hyperlipidemia E78.5 Assessment & Plan Assessment & Plan (1) Hyperlipidemia: Code(s): E78.5 - Hyperlipidemia, unspecified Category: Medical Plan: stable; same rx
[2024-03-18 14:26] VITALS: BP 130/72; PULSE 85; TEMP 36.3; O2SAT 97; BMI 31.5
== END 2024-03-18 14:56 | disposition home or self-care (01) ==
LOC: HO.HMCH 14:14
PROVIDERS: PCP Internal Medicine; Visit Provider Internal Medicine
DX: E78.5 Hyperlipidemia, unspecified (principal)

== ENCOUNTER → 2024-03-18 14:14 | Outpatient (BNVA) | payer BC, SELFPAY | PROVIDERS: PCP Internal Medicine; Visit Provider Internal Medicine ==

== ENCOUNTER 2024-09-09 10:11 | Outpatient (REF) | payer BC, SELFPAY ==
[2024-09-09 11:59] LABS: Alanine Aminotransferase 31 U/L (0-40); Albumin Level 4.4 g/dL (3.5-5.0); Alkaline Phosphatase 64 U/L (39-117); Anion Gap 8 (12-20); Aspartate Amino Transferase 28 U/L (5-37); Blood Urea Nitrogen 16 mg/dL (9-16); Calcium 9.1 mg/dL (8.4-10.2); Carbon Dioxide 26 mmol/L (22-29); Chloride 110 mmol/L (96-108); Cholesterol 112 mg/dL (<200); Estimated Glomerular Filt Rate > 60; HDL Cholesterol 37 mg/dL (>40); Potassium 4.2 mmol/L (3.3-5.1); Sodium 140 mmol/L (135-145); Total Protein 7.0 g/dL (6.5-8.0); Triglycerides 63 mg/dL (<150)
[2024-09-09 12:15] LABS: PSA,Total (Free>4and<10) 3.28 ng/mL (0.00-4.00)
[2024-09-09 12:23] LABS: Microalbum/Creatinine Ratio Ur 5.6 ug/mg cr (<30)
== END 2024-09-09 10:12 | disposition home or self-care (01) ==
LOC: HO.LAB 10:11
PROVIDERS: PCP Internal Medicine; Visit Provider Internal Medicine
DX: I10 Essential (primary) hypertension (principal); E78.5 Hyperlipidemia, unspecified; R35.1 Nocturia; R80.9 Proteinuria, unspecified
CPT/HCPCS: 36415; 80053; 80061; 82043; 82570; 84153

== ENCOUNTER 2024-09-19 07:18 | Outpatient (AMB) | payer BC, SELFPAY ==
--- OUTSIDE RECORDS SUMMARY | 2023-04-05 07:30 | XMS_ITS ---
Author Organization [facility] Address [address] [place] [id number] Care Team Providers Care Pin Sticker Name Role Phone Erasto Otero MD Primary Care Provider Panchito Saleem [phone] REASON FOR VISIT screening Encounters Encounter Location Date Provider Diagnosis [facility] Outpatient [address] [place] [id number] 04/05/2023 Panchito Floyd Plan Of Treatment No Information Progress Notes * BALWINDER AUGUSTINDOB:1955 (69 yo M)Acc No.[id number]:04/05/2023 COLON WITH MAC Patient: Omar MEJÍADIAZ BALWINDER Melendez Provider: Katarina Floyd MD :1955 A ge:67 Y S ex:Male Date:04/05/2023 Address:[address] [place], [place] [id number] Pcp:Erasto Otero MD Subjective: * Chief Complaints: * 1 . Screening. * Medical History: Objective: * Vitals: Assessment: Plan: * Treatment: * * The named appointment provid er may or may not be the originator of this progress note, and it is not deemed complete until electronically signed by the appointment provider. Sign off status: Pending * Provider: Katarina Floyd MD Date: 0 04/05/2023 Generated for Printi ng/Faxing/eTransmitting on: 0 09/19/2024 07:21 AM EDT
--- NOTE | 2024-09-19 07:37 | MHC.PC.OV ---
Vital Signs 09/19/24 07:38 Height 5 ft 7 in Weight 197 lb 15.602 oz BMI 31.0 BP 136/78 Blood Pressure Location Lt brachial Position Sitting Intake Visit Reasons: Transfer Care from Dr. Otero / [facility] f/u Edge Grinder Machine Required: No Accompanied by: Self / Same As Patient Allergies No Known Allergies Allergy (Verified 09/19/24 07:44) Medication List - Last Reconciled 09/19/24 by Grazyna Ruffin MD aspirin 81 mg PO DAILY atorvastatin 20 mg PO DAILY carvedilol 12.5 mg PO BID ezetimibe 10 mg PO DAILY lisinopril 5 mg PO DAILY Tobacco use date assessed: 03/18/24 Dental Screening Dental Screen Date: 03/18/24 HPI HPI Comments History of Present Illness Details This is a 69-year-old male with hypertension and hyperlipidemia that comes today for transfer of care from a retiring doctor. Blood pressure well controlled. Labs were discussed and were within normal limits. He does complains of nocturia and will be referred to Urology. Cholesterol stable with statins. Has history of coronary artery disease with stent placement in 2002 and use aspirin as secondary prophylaxis. Had his colonoscopy in 2023. Needs pneumonia vaccine that will be place today. He also complains of multiple macular skin lesions that are hyperpigmented and would like to see Dermatology. [facility] Medical History (Updated 09/19/24 @ 07:57 by Grazyna Ruffin MD) Hyperlipidemia associated with type 2 diabetes mellitus ETOH abuse Thrombocytopenia Myocardial infarction Elevated cholesterol HTN (hypertension) CAD (coronary artery disease) Surgical History Hx of hand surgery Hx of right inguinal hernia repair H/O colonoscopy History of heart artery stent Social History Housing: House Alcohol intake: never Patient Tobacco Use Status: Never used Tobacco e-Cigarette/Vaping Use: Never Used Second Hand Smoke Exposure: No service: No Current occupational status: employed Current occupation: sales Cognitive needs: No Hearing needs: No Vision needs: No Questionnaire PHQ-9 Over the last 2 weeks, how often have you been bothered by any of the following problems? 1. Little interest or pleasure in doing things: not at all 2. Feeling down, depressed, or hopeless: not at all 3. Trouble falling or staying asleep, or sleeping too much: not at all 4. Feeling tired or having little energy: not at all 5. Poor appetite or overeating: not at all 6. Feeling bad about yourself - or that you are a failure or have let yourself or your family down: not at all 7. Trouble concentrating on things, such as reading the newspaper or watching television: not at all 8. Moving or speaking so slowly that other people could have noticed. Or the opposite - being so fidgety or restless that you have been moving around a lot more than usual: not at all 9. Thoughts that you would be better off or of hurting yourself in some way: not at all Total score: 0 Depression Screening Interpretation: Negative Depression Screening Done: Yes 33032 - PHQ-9 Billing: Yes Source: Developed by Drs. Panchito Monreal, Delaney Salgado, Brett Chavez and colleagues, with an educational sidney from [employer]. Thrive Questionnaire Date Thrive assessed: 09/19/24 I am a: Patient What is your living situation today?: I have a steady place to live Within the past 12 months, did the food you bought not last and you didn't have the money to get more?: Never true Within the past 12 months, did you worry whether your food would run out before you got money to buy more?: Never true Do you have trouble paying for medicines?: No Do you have trouble getting transportation to medical appointments?: No Do you have trouble paying your heating and electricity bill?: No Do you have trouble taking care of your child, family member or friend?: No Do you have trouble with day-to-day activities such as bathing, preparing meals, shopping, managing finances, etc.?: No Are you currently unemployed and looking for a job?: No Are you interested in more education?: No Please select the resources that you would like help with: None Currently or been in a relationship where the following occur: No concerns reported THRIVE Score: 0 AUDIT C Alcohol Use Questionnaire (AUDIT-C) 1. How often do you have a drink containing alcohol?: Never Total Score: 0 Score Reviewed/Action Taken: No NINA-7 AMB Questionnaire NINA-7 Date NINA - 7 assessed: 09/19/24 Feeling nervous, anxious, or on edge: 0 = Not at all Not being able to stop or control worryin = Not at all Worrying too much about different things: 0 = Not at all Trouble relaxin = Not at all Being so restless that it is hard to sit still: 0 = Not at all Becoming easily annoyed or irritable: 0 = Not at all Feeling afraid as if something awful might happen: 0 = Not at all Total NINA-7 score (0-4 normal; 5-9 mild; 10-14 moderate; 15-21 severe): 0 Source: Developed by Drs. Panchito Monreal, Delaney Salgado, Brett Chavez and colleagues, with an educational sidney from [employer]. NINA-7 Assessment Billing NINA-7 Assessment Tool: NINA-7 Assessment 21852 Review of Systems Const All systems reviewed & are unremarkable except as noted in HPI and below Card Denies chest pain at rest, Denies chest pain with activity, Denies edema, Denies irregular heart rhythm, Denies claudication, Denies dyspnea, Denies dyspnea on exertion, Denies orthopnea, Denies paroxysmal nocturnal dyspnea and Denies slow heart rate Resp Denies cough, Denies dyspnea and Denies dyspnea on exertion GI Denies abdominal pain, Denies change in bowel habits, Denies excessive flatus, Denies nausea and Denies vomiting Reports nocturia, Denies urinary hesitancy, Denies urinary incontinence and Denies urinary urgency Musc Denies atrophy, Denies deformity and Denies limited range of motion Skin/Breast Reports lesions Physical exam (Primary Care) Vital Signs: Last Vital Signs BP 136/78 09/19/24 07:38 BMI result Body Mass Index 31.0 Tobacco/Smoking Status: Tobacco use Status Tobacco use date assessed 03/18/24 09/19/24 07:42 Patient Tobacco Use Status Never used Tobacco 09/19/24 07:42 e-Cigarette/Vaping Use Never Used 09/19/24 07:42 PHQ-9: PHQ-9 Score PHQ-9: Total score 0 09/19/24 07:48 Depression Screening Interpretation: Negative Thrive Assessment: Date of Thrive Assessment Date Thrive assessed 09/19/24 09/19/24 07:42 Currently or been in a relationship where the following occur: No concerns reported Resp Effort & Inspection: normal respiratory effort Auscultation: clear to auscultation bilaterally Cardio Jugular venous distension: no JVD Rate: regular rate Rhythm: regular rhythm Heart sounds: S1 normal heart sound present and S2 normal heart sound present Skin Lesions: lesion noted (macular hyperpigmented lesions in hand and scalp) Extrem General: Yes full ROM Immunizations pneumoc 20-luis enrique conj-dip cr(PF) 0.5 mL IM syringe Performing Provider: Grazyna Ruffin MD Performing Location: [facility] Administered by: SUGAR Connell on 09/19/24 08:07 Dose Route Admin Location Dispensed Lot Number Expiration Date [facility] [employer] 0.5 mL IM Left Deltoid 0.5 mL [id number] 08/27/25 3633-9940-10 [employer] Total Dispensed Waste 0.5 mL 0 % VIS Given Date VIS Provided VIS Publication Date 09/19/24 Single Vaccine 24 Eligibility Eligibility Date Funding Source Not [facility] Eligible 09/19/24 Private Coding Level of Care Code Est Pt Level 4 (98580) Complex EM visit Add On G2211 Diagnoses Essential hypertension I10 Hyperlipidemia E78.5 Nocturia R35.1 Skin lesion L98.9 Additional Codes PHQ-9 - 07333 - PHQ-9 Billing: Yes ([id number]) NINA-7 Assessment Billing - NINA-7 Assessment Tool: NINA-7 Assessment 29758 ([id number]) Time Spent (min) 22 Assessment & Plan Assessment & Plan (1) Essential hypertension: Code(s): I10 - Essential (primary) hypertension Category: Medical (2) Hyperlipidemia: Code(s): E78.5 - Hyperlipidemia, unspecified Category: Medical (3) Nocturia: Code(s): R35.1 - Nocturia Category: Medical (4) Skin lesion: Code(s): L98.9 - Disorder of the skin and subcutaneous tissue, unspecified Category: Medical Plan Continue current medication. referred to urology for nocturia. Referred to dermatology for skin lesions. Orders: Orders Lipid Panel 6 Months E78.5 - Hyperlipidemia, unspecified Comprehensive [place]. Panel Fast 6 Months I10 - Essential (primary) hypertension Pneumococcal 20 Immunization Today Z23 - Encounter for immunization Referrals Urology Referral R35.1 - Nocturia Dermatology Referral L98.9 - Disorder of the skin and subcutaneous tissue, unspecified
[2024-09-19 07:38] VITALS: BP 136/78; BMI 31.0
== END 2024-09-19 08:00 | disposition home or self-care (01) ==
LOC: HO.HMCH 07:19
PROVIDERS: PCP Internal Medicine; Visit Provider Internal Medicine
DX: I10 Essential (primary) hypertension (principal); E78.5 Hyperlipidemia, unspecified; R35.1 Nocturia; L98.9 Disorder of the skin and subcutaneous tissue, unspecified; Z23 Encounter for immunization

== ENCOUNTER → 2024-09-19 07:18 | Outpatient (BNVA) | payer BC, SELFPAY | PROVIDERS: PCP Internal Medicine; Visit Provider Internal Medicine | DX: Z76.89 Persons encountering health services in other specified circumstances (principal); Z23 Encounter for immunization; I10 Essential (primary) hypertension; E78.5 Hyperlipidemia, unspecified; R35.1 Nocturia; L98.9 Disorder of the skin and subcutaneous tissue, unspecified; I25.10 Atherosclerotic heart disease of native coronary artery without angina pectoris; Z79.82 Long term (current) use of aspirin; Z95.5 Presence of coronary angioplasty implant and graft; Z13.31 Encounter for screening for depression; Z13.39 Encounter for screening examination for other mental health and behavioral disorders | CPT/HCPCS: 90471; 90677; 96127 ==

== ENCOUNTER 2024-12-18 07:45 | Outpatient (AMB) | payer BC, SELFPAY ==
--- OUTSIDE RECORDS SUMMARY | 2024-12-18 07:48 | XMS_ITS | Patient Health Record ---
Author Organization [facility] Address [address] [place] [id number] Care Team Providers Care Flexographic Printing Press Operator Name Role Phone Erasto Otero MD Primary Care Provider Panchito Saleem Unavailable [phone] Allergies No Known Allergies Reason For Referral No Information Medications Medication SIG (Take, Route, Frequency, Duration) Notes Start Date End Date Status Lisinopril 5 MG 1 tablet Orally Once a day Active Ezetimibe 10 MG 1 tablet Orally Once a day; Duration: 30 day(s) Active Carvedilol 12.5 MG Orally A ctive Atorvastatin Calcium 20 MG 1 tablet Oral ly Once a day Active Aspirin Adult Low Dose 81 MG 1 tablet Orally Once a day Active Immunizations Vaccine Route Administration Date Status Comme nts Influenza Unknown 01/12/2023 Refused Social History Tobacco Use: Social History Observation Description Date Details (start date - stop date) Never Smoker NA - NA Tobacco Use/Smoking Question Answer Notes Patient is a nonsmoker Alcohol Screen Question Answer Notes Did you have a drink containing alcohol in the p ast year? No Points 0 Interpretation Negative Section Notes: Nonsmoker; alcohol as above Nonsmoker; alcohol as above Problems Problem Type SNOMED Code ICD Code Onset Dates Problem Status W/U Status Risk Notes Problem Colon cancer screening (377681862) Colon cancer screening (Z12.11) Active confirmed Problem Screening for malignant neoplasm of colon (417823531) Encounter for screening for malignant neoplasm of colon (Z12.11) Active confirmed Problem Diverticular disease of colon (527806096) Diverticulosis of large intestine without perforation or abscess without bleeding (K57.30) Active confirmed Problem Preprocedural examination (084160527268895) Preprocedural examination (Z01.818) Active confirmed Problem Thrombocytopenia (552914792) Thrombocytopenia (D69.6) Active confirmed Problem Nondependent alcohol abuse in remission (439464922) History of alcohol abuse (F10.11) Active confirmed Plan Of Treatment Pending Test Test Name Order Date CBC w DIFF 01/12/2023 US abdomen comp w elastography 3 Future Test Test Name Order Date COLONOSCOPY 01/12/2023 Insurance Providers Payer Name Payer Address Payer Phone Subscriber Number Group Number Insured Name Patient Relationship to Insured Coverage Start Date Coverage End Date [facility] [address] [place], [place] [id number] BALWINDER DAUGHERTY Self - patient is the insured Medical (General) History Medical History History ICD Code Hypertension Hypercholesterolemia Incomplete right bundle branch block 201 0 Hx of [place] 2002--3 stents plac ed at that time--no problems since then--sees Dr. Kennedy Negative colonoscopy in 03/[address] Collazo EtoH abuse--sober since 08/2014--goes to [facility] Denies DM,CVA,Lung disease,renal disease Thrombocytopenia with a platelet count o f 120,000 in September of 2022 Surgical History Surgery Date(Month/Year) Right inguinal hernia 2010 Right trigger thumb 2015
--- NOTE | 2024-12-18 07:56 | MHC.OFFVIS ---
Intake Visit Reasons: est with Dr. Banks last appt 2022 for BPH Intake Note: Patient presents today for follow up/BPH Urology Meds- None Allergies to Antibiotic- No Known Allergies Blood Thinner- Aspirin PVR:46ml Soaking Room Operator Required: No Accompanied by: Self / Same As Patient Allergies No Known Allergies Allergy (Verified 12/18/24 07:56) HPI Comments Details: 12/18/24- Elieser is a 69-year-old male, he was last seen in the office 10/26/2022 as a new patient for lower urinary tract symptoms of frequency urgency. Past medical history coronary artery disease status post cardiac stents x 3 - 2002, hyperlipidemia. In review of his chart he had PSA screening 03/11/2024 PSA was 3.16 ng/mL, followed by PSA on 09/09/2024 3.28 ng/mL History of Present Illness The patient is a 69-year-old male presenting with lower urinary tract symptoms. He was last seen in the office on 10/26/2022 as a new patient for these symptoms, which include frequency and urgency. The patient reports nocturia, having to urinate a couple of times a night, and a weaker urinary stream. He sometimes feels the need to urinate again shortly after voiding. Results - PSA screening on 03/11/24: 3.16 ng/mL - PSA screening on 09/09/24: 3.28 ng/mL Plan 1. Lower Urinary Tract Symptoms - Order an ultrasound to evaluate the bladder, prostate, and kidneys. - Consider alpha mickey if necessary. Pt wants to hold on starting any new meds now. - Follow-up with cystoscopy 2. h/o Coronary Artery Disease/Hyperlipidemia - on daily aspirin 10/26/2022?Elieser is a 67-year-old male who presents today to the office to establish as a new patient for an evaluation of frequency of micturition. Elieser is present today for an evaluation of frequency of micturition. I reviewed the PSA results from 10/24/2022 revealed 2.87. He reports intermittent nocturia. He states that he has urinary frequency, denies dysuria He is unable to give a urine specimen today. Bladder scan PVR - 0 mL PSA 10/24/22- 2.87 Plan: Renal US. Discussed behavioral modifications. Avoid dietary bladder irritants. Discussed medications to include but not limited to alpha blockers; will hold on these for now, pending lifestyle changes. Follow up in 3 months to discuss the US results. PFSH Medical History Hyperlipidemia associated with type 2 diabetes mellitus ETOH abuse Thrombocytopenia Myocardial infarction Elevated cholesterol HTN (hypertension) CAD (coronary artery disease) Surgical History Hx of hand surgery Hx of right inguinal hernia repair H/O colonoscopy History of heart artery stent Social History Housing: House Alcohol intake: never Patient Tobacco Use Status: Never used Tobacco e-Cigarette/Vaping Use: Never Used Second Hand Smoke Exposure: No service: No Current occupational status: employed Current occupation: sales Cognitive needs: No Hearing needs: No Vision needs: No Review of Systems Const All systems reviewed & are unremarkable except as noted in HPI and below Reports no additional complaints Eyes Reports no additional complaints ENT Reports no additional complaints Card Reports no additional complaints Resp Reports no additional complaints GI Reports no additional complaints Reports as per HPI Musc Reports no additional complaints Skin/Breast Reports system reviewed and no additional complaints, except as documented Neuro Reports no additional complaints Psych Reports no additional complaints Endo Reports no additional complaints Ahsan/Lymph Reports no additional complaints Aller/Immun Reports no additional complaints Assessment & Plan Assessment & Plan (1) Urinary frequency: Code(s): R35.0 - Frequency of micturition Category: Medical (2) Nocturia: Code(s): R35.1 - Nocturia Category: Medical (3) BPH loc w urin obs/LUTS: Code(s): N40.1 - Benign prostatic hyperplasia with lower urinary tract symptoms Category: Medical Plan Plan 1. Lower Urinary Tract Symptoms - Order an ultrasound to evaluate the bladder, prostate, and kidneys. - Consider alpha mickey if necessary. - Follow-up with cystoscopy 2. h/o Coronary Artery Disease/Hyperlipidemia - on daily aspirin Orders: Orders US retroperitoneal comp Today N40.1 - Benign prostatic hyperplasia with lower urinary tract symptoms, R35.0 - Frequency of micturition, R35.1 - Nocturia Patient Instructions: The patient had an opportunity to ask questions regarding treatment plan. The patient expressed understanding and agreement with the above treatment plan. The patient is aware they should contact our office by phone for worsening of their current condition or the appearance of new symptoms. Compliance is encouraged with any medications and followup testing that is ordered. It is a privilege to be allowed the opportunity to participate in the urologic care of your patient. If you have any questions or concerns regarding treatment for the above conditions please do not hesitate to contact me. The office telephone contact is [phone]. This note is constructed in part using voice recognition software. While every effort has been made to ensure accuracy hot strip mill supervisor errors may have been included. Yours sincerely, Iris Truong MD Scribe Plan - Not visible on output: Patient was informed and verbally consented to the use of an ambient scribe for clinic note documentation during this visit. Coding Level of Care Code Est Pt Level 4 (13293) Complex EM visit Add On G2211 Diagnoses Urinary frequency R35.0 Nocturia R35.1 BPH loc w urin obs/LUTS N40.1
== END 2024-12-18 08:37 | disposition home or self-care (01) ==
LOC: HO.HUSH 07:45
PROVIDERS: PCP Internal Medicine; Visit Provider Urology
DX: N40.1 Benign prostatic hyperplasia with lower urinary tract symptoms (principal); R35.0 Frequency of micturition; R35.1 Nocturia
CPT/HCPCS: 99214

== ENCOUNTER → 2024-12-18 07:45 | Outpatient (BNVA) | payer BC, SELFPAY | PROVIDERS: PCP Internal Medicine; Visit Provider Urology | DX: R35.0 Frequency of micturition (principal) | CPT/HCPCS: 51798; 81003 ==

== ENCOUNTER 2025-02-06 08:49 | Outpatient (AMB) | payer BC, SELFPAY ==
--- NOTE | 2025-02-06 09:15 | A.OFFVIS_ITS ---
Intake Visit Reasons: cysto/US Intake Note: Patient presents today for a cystoscopy/US (US booked for 02/12) Urology Meds- None Allergies to Antibiotic- No Known Allergies Blood Thinner- Aspirin Lot#:[id number] EXP: 08/06/27 Ditch Worker Required: No Accompanied by: Self / Same As Patient Allergies No Known Allergies Allergy (Verified 02/24/25 07:29) HPI Comments Details: 02/06/2025--here for office cystoscopy History of Present Illness The patient is a 69 year old male presenting for an office cystoscopy. Cystoscopy findings: prostatic urethra bilobar enlargement with prominent median lobe, mild to moderate bladder wall thickening, bulbous urethra WNL, no suspicious bladder lesions visualized Plan - An ultrasound of the kidneys and prostate is pending for next week - A GreenLight laser procedure was discussed as a treatment option if the patient wishes to avoid medication. - The patient was provided with a pamphlet on the GreenLight laser procedure. - A follow-up phone call will be scheduled after the ultrasound to review the results and discuss treatment options further. 12/18/24- Elieser is a 69-year-old male, he was last seen in the office 10/26/2022 as a new patient for lower urinary tract symptoms of frequency urgency. Past medical history coronary artery disease status post cardiac stents x 3 - 2002, hyperlipidemia. In review of his chart he had PSA screening 03/11/2024 PSA was 3.16 ng/mL, followed by PSA on 09/09/2024 3.28 ng/mL History of Present Illness The patient is a 69-year-old male presenting with lower urinary tract symptoms. He was last seen in the office on 10/26/2022 as a new patient for these symptoms, which include frequency and urgency. The patient reports nocturia, having to urinate a couple of times a night, and a weaker urinary stream. He sometimes feels the need to urinate again shortly after voiding. Results - PSA screening on 03/11/24: 3.16 ng/mL - PSA screening on 09/09/24: 3.28 ng/mL Plan 1. Lower Urinary Tract Symptoms - Order an ultrasound to evaluate the bladder, prostate, and kidneys. - Consider alpha mickey if necessary. Pt wants to hold on starting any new meds now. - Follow-up with cystoscopy 2. h/o Coronary Artery Disease/Hyperlipidemia - on daily aspirin 10/26/2022?Elieser is a 67-year-old male who presents today to the office to establish as a new patient for an evaluation of frequency of micturition. Elieser is present today for an evaluation of frequency of micturition. I reviewed the PSA results from 10/24/2022 revealed 2.87. He reports intermittent nocturia. He states that he has urinary frequency, denies dysuria He is unable to give a urine specimen today. Bladder scan PVR - 0 mL PSA 10/24/22- 2.87 Plan: Renal US. Discussed behavioral modifications. Avoid dietary bladder irritants. Discussed medications to include but not limited to alpha blockers; will hold on these for now, pending lifestyle changes. Follow up in 3 months to discuss the US results. [facility] Medical History Hyperlipidemia associated with type 2 diabetes mellitus ETOH abuse Thrombocytopenia Myocardial infarction Elevated cholesterol HTN (hypertension) CAD (coronary artery disease) Surgical History Hx of hand surgery Hx of right inguinal hernia repair H/O colonoscopy History of heart artery stent Social History Housing: House Alcohol intake: never Patient Tobacco Use Status: Never used Tobacco e-Cigarette/Vaping Use: Never Used Second Hand Smoke Exposure: No service: No Current occupational status: employed Current occupation: sales Cognitive needs: No Hearing needs: No Vision needs: No Office Procedures Cystoscopy Consent Discussed risk and benefit or proposed procedure with the patient. Information consent for procedure given to the patient. Discussed technical aspects, risks, benefits and alternatives in full. Addressed all of the patient's questions and concerns regarding the procedure. The patient demonstrated knowledge and understanding. They wish to proceed with this procedure. Preparation The patient was prepped in the usual manner. A mental health case manager was present and in the room. Genitalia was prepped with betadine solution in a sterile manner. Lidocaine Jelly 2% was placed into the urethra and 16Fr flexible Olympus cystoscope was inserted into the meatus after adequate lubrication. Procedure Time out per protocol performed. The flexible cystoscope is passed transurethrally: The bladder was inspected in its entirety with utilization retroflexion displaying: Tumor(s): no suspicious bladder lesions visualized Trabeculation: Mild to Moderate i Mucosal Erthema: Orifices: normal shape and position Urethra: normal Cystoscopy findings: prostatic urethra bilobar enlargement with prominent median lobe, mild to moderate bladder wall thickening, bulbous urethra WNL, no suspicious bladder lesions visualized [id number] DISPOSABLE SCOPE URO-G FLEXIBLE SCOPE Procedure code (CPT) selection complete Office Meds lidocaine HCl 2 % mucosal jelly in applicator Performing Provider: Iris Truong MD [place] [facility] Administered by: Gianni Faye LPN on 02/06/25 09:29 Dose Route Admin Location Dispensed Lot Number Expiration Date NDC Contracts Director 10 mL intra-urethral 20 mL ciprofloxacin HCl 500 mg tablet Performing Provider: Iris Truong MD Performing [place] [facility] Administered by: Gianni Faye LPN on 02/06/25 09:29 Dose Route Admin Location Dispensed Lot Number Expiration Date NDC Contracts Director 500 mg PO 1 tab phenazopyridine 200 mg tablet Performing Provider: Iris Truong MD Performing Location: [facility] Administered by: Gianni Faye LPN on 02/06/25 09:29 Dose Route Admin Location Dispensed Lot Number Expiration Date NDC Contracts Director 200 mg PO 1 tab Results AMB Urinalysis, Automated UA Leukoctes 0 Naomie/uL Last Edit by Jenn Gagnon on 02/06/25 16:32 UA Nitrite Negative Last Edit by Jenn Gagnon on 02/06/25 16:32 UA Urobilinogen 1 mg/dL Last Edit by Jenn Gagnon on 02/06/25 16:32 UA Protein 15 mg/dL Last Edit by Jenn Gagnon on 02/06/25 16:32 UA pH 5.5 Last Edit by Jenn Gagnon on 02/06/25 16:32 UA Blood 0 Heath/uL Last Edit by Jenn Gagnon on 02/06/25 16:32 UA Specific [place] 1.025 Last Edit by Jenn Gagnon on 02/06/25 16:32 UA Ketone Negative Last Edit by Jenn Gagnon on 02/06/25 16:32 UA Bilirubin 0 mg/dL Last Edit by Jenn Gagnon on 02/06/25 16:32 UA Glucose 0 mg/dL Last Edit by Jenn Gagnon on 02/06/25 16:32 Results Reviewed Results Reviewed: Laboratory Last Values Urine pH (Auto) 5.5 02/06/25 12:22 Specific [place] (Auto) 1.025 02/06/25 12:22 Urine Protein (Auto) 15 mg/dL 02/06/25 12:22 Glucose (UA)(Auto) 0 mg/dL 02/06/25 12:22 Urine Ketones (Auto) Negative 02/06/25 12:22 Urine Blood (Auto) 0 Heath/uL 02/06/25 12:22 Urine Nitrite (Auto) Negative 02/06/25 12:22 Urine Bilirubin (Auto) 0 mg/dL 02/06/25 12:22 Urine Urobilinogen (Auto) 1 mg/dL 02/06/25 12:22 Leukocyte Esterase (Auto) 0 Naomie/uL 02/06/25 12:22 Assessment & Plan Assessment & Plan (1) Urinary frequency: Code(s): R35.0 - Frequency of micturition Category: Medical (2) Nocturia: Code(s): R35.1 - Nocturia Category: Medical (3) BPH loc w urin obs/LUTS: Code(s): N40.1 - Benign prostatic hyperplasia with lower urinary tract symptoms Category: Medical Plan Plan - An ultrasound of the kidneys and prostate is pending for next week - A GreenLight laser procedure was discussed as a treatment option if the patient wishes to avoid medication. - The patient was provided with a pamphlet on the GreenLight laser procedure. - A follow-up phone call will be scheduled after the ultrasound to review the results and discuss treatment options further. Orders: Orders AMB Cystoscopy 02/06/25 N40.1 - Benign prostatic hyperplasia with lower urinary tract symptoms, R35.1 - Nocturia, R35.0 - Frequency of micturition AMB Urinalysis Automated 02/06/25 Z13.9 - Encounter for screening, unspecified Patient Instructions: The patient had an opportunity to ask questions regarding treatment plan. The patient expressed understanding and agreement with the above treatment plan. The patient is aware they should contact our office by phone for worsening of their current condition or the appearance of new symptoms. Compliance is encouraged with any medications and followup testing that is ordered. It is a privilege to be allowed the opportunity to participate in the urologic care of your patient. If you have any questions or concerns regarding treatment for the above conditions please do not hesitate to contact me. The office telephone contact is [phone]. This note is constructed in part using voice recognition software. While every effort has been made to ensure accuracy forging machine operator errors may have been included. Yours sincerely, Iris Truong MD Scribe Plan - Not visible on output: Patient was informed and verbally consented to the use of an ambient scribe for clinic note documentation during this visit. Coding Level of Care Code Procedure Only Diagnoses Urinary frequency R35.0 Nocturia R35.1 BPH loc w urin obs/LUTS N40.1 CPT Codes Cystoscopy - CPT: 46974-[id number] ([id number])
== END 2025-02-06 10:25 | disposition home or self-care (01) ==
LOC: HO.HUSH 08:50
PROVIDERS: PCP Internal Medicine; Visit Provider Urology
DX: N40.1 Benign prostatic hyperplasia with lower urinary tract symptoms (principal); R35.1 Nocturia; R35.0 Frequency of micturition
CPT/HCPCS: 52000

== ENCOUNTER → 2025-02-06 08:49 | Outpatient (BNVA) | payer BC, SELFPAY | PROVIDERS: PCP Internal Medicine; Visit Provider Urology | DX: N40.1 Benign prostatic hyperplasia with lower urinary tract symptoms (principal); R35.0 Frequency of micturition; R35.1 Nocturia | CPT/HCPCS: 52000; 81003 ==

== ENCOUNTER 2025-02-12 10:29 | Outpatient (REF) | payer BC, SELFPAY ==
--- NOTE | ~2025-02-12 | US_ITS ---
CLINICAL HISTORY: R35.1 - Nocturia --- Additional Notes or Special Instructions: please measure prostate Ultrasound kidneys. COMPARISON: None provided. Technique: Real time sonographic imaging, including color-flow imaging, was performed by the marine operations coordinator. Multiple underwriting sales representative static images were saved for review. FINDINGS: Right kidney: Cortical medullary differentiation is maintained. Normal color flow by Doppler. Simple parapelvic renal cyst measuring 3.6 x 4.7 x 3.2 cm. No hydronephrosis. Right kidney size: 13.8 x 6.9 x 9.4 cm Left kidney: Cortical medullary differentiation is maintained. Normal color flow by Doppler. No calculus or focal parenchymal abnormality identified. No hydronephrosis. Left kidney size: 12.6 x 5.5 x 9.5 cm The urinary bladder is unremarkable. Bilateral ureteral jets visualized. Prevoid volume: 469 mL Postvoid volume: 341 mL, increased Prostate is enlarged measuring 51 mL. IMPRESSION: 1. No evidence of renal obstruction. No renal calculus identified bilaterally. 2. Simple left renal cysts measuring up to 4.6 cm. 3. Urinary bladder retention with large postvoid residual. Of note there is prostatomegaly. This document has been electronically signed by: Aj Parra MD on 02/12/2025 18:09:06
--- OUTSIDE RECORDS SUMMARY | 2025-02-12 13:04 | XMS_ITS | Patient Health Record ---
Author Organization [facility] Address [address] [place] [id number] Care Team Providers Care Mattress And Boxsprings Supervisor Name Role Phone Erasto Otero MD Primary Care Provider Panchito Saleem Unavailable [phone] Allergies No Known Allergies Reason For Referral No Information Medications Medication SIG (Take, Route, Frequency, Duration) Notes Start Date End Date Status Lisinopril 5 MG Tablet 1 tablet Orally O nce a day Active Ezetimibe 10 MG Tablet 1 tablet Orally O nce a day; Duration: 30 day(s) Active Carvedilol 12.5 MG Tablet Orally Active Atorvastatin Calcium 20 MG Tablet 1 tablet Orally Once a day Active Aspirin Adult Low Dose 81 MG Tablet Delayed Release 1 tablet Orally Once a day Active Immunizations Vaccine Route Administration Date Status Comme nts Influenza Unknown 01/12/2023 Refused Social History Tobacco Use: Social History Observation Description Date Details (start date - stop date) Never Smoker NA - NA Social History Drugs/Alcohol: Social Info Question Answer Notes Alcohol Screen Did you have a drink containing alcohol in the past year? 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 Section Notes: Nonsmoker; alcohol as above Nonsmoker; alcohol as above Problems Problem Type SNOMED Code ICD Code Onset Dates Problem Status W/U Status Risk Notes Problem Colon cancer screening (363753947) Colon cancer screening (Z12.11) Active confirmed Problem Screening for malignant neoplasm of colon (983496891) Encounter for screening for malignant neoplasm of colon (Z12.11) Active confirmed Problem Diverticular disease of colon (080905346) Diverticulosis of large intestine without perforation or abscess without bleeding (K57.30) Active confirmed Problem Preprocedural examination (109268773369046) Preprocedural examination (Z01.818) Active confirmed Problem Thrombocytopenia (058228599) Thrombocytopenia (D69.6) Active confirmed Problem History of alcohol use disorder (situation) (1987123276) History of alcohol abuse (F10.11) Active confirmed Plan Of Treatment Pending Test Test Name Order Date CBC w DIFF 01/12/2023 US abdomen comp w elastography 3 Future Test Test Name Order Date COLONOSCOPY 01/12/2023 Insurance Providers Payer Name Payer Address Payer Phone Subscriber Number Group Number Insured Name Patient Relationship to Insured Coverage Start Date Coverage End Date [facility] [address] [place], [place] [id number] BALWINDER DAUGHERTY Self - patient is the insured Medical (General) History Medical History History ICD Code Hypertension Hypercholesterolemia Incomplete right bundle branch block 201 0 Hx of AL 2002--3 stents plac ed at that time--no problems since then--sees Dr. Kennedy Negative colonoscopy in 03/[address] Collazo EtoH abuse--sober since 08/2014--goes to [facility] Denies DM,CVA,Lung disease,renal disease Thrombocytopenia with a platelet count o f 120,000 in September of 2022 Surgical History Surgery Date(Month/Year) Right inguinal hernia 2010 Right trigger thumb 2015
== END 2025-02-12 10:30 | disposition home or self-care (01) ==
LOC: HO.US 10:29
PROVIDERS: PCP Internal Medicine; Visit Provider Urology
DX: N40.1 Benign prostatic hyperplasia with lower urinary tract symptoms (principal); R35.1 Nocturia; R35.0 Frequency of micturition
CPT/HCPCS: 76770

== ENCOUNTER → 2025-02-12 10:36 | Outpatient (BNV) | payer BC, SELFPAY | PROVIDERS: PCP Internal Medicine; Visit Provider Radiology Diagnostic Radiology | DX: N28.1 Cyst of kidney, acquired (principal); N40.1 Benign prostatic hyperplasia with lower urinary tract symptoms; R33.9 Retention of urine, unspecified | CPT/HCPCS: 76770 ==

== ENCOUNTER 2025-02-24 07:17 | Outpatient (AMB) | payer BC, SELFPAY ==
--- NOTE | 2025-02-24 07:20 | MHC.PC.OV ---
Vital Signs 02/24/25 07:21 Height 5 ft 7 in Weight 194 lb 6 oz BMI 30.4 BP 144/90 H Blood Pressure Location Lt brachial Position Sitting Pulse 99 Pulse Source Pulse Oximeter Temp 97.5 F Temp Source Temporal Artery Scan Pulse Oximetry (%) 97 Oxygen Delivery Method Room Air Intake Visit Reasons: Annual Physical Electric Truck Crane Operator Required: No Accompanied by: Self / Same As Patient Allergies No Known Allergies Allergy (Verified 02/24/25 07:29) Medication List - Last Reconciled 02/24/25 by Grazyna Ruffin MD aspirin 81 mg PO DAILY atorvastatin 80 mg PO carvedilol 12.5 mg PO BID ezetimibe 10 mg PO DAILY lisinopril 5 mg PO DAILY Tobacco use date assessed: 03/18/24 Fall risk assessment: No Falls in past year Last assessed Fall Risk: 02/24/25 Dental Screening Dental Screen Date: 03/18/24 HPI HPI Comments History of Present Illness Details This is a 69-year-old male that comes for his physical exam. Blood pressure borderline normal to elevated and will be recheck in 3 weeks by nurse navigator. Up-to-date with pneumonia vaccine. Declines flu vaccine today. Colonoscopy done last year showing a sessile serrated polyp. Complains of right shoulder pain that started about a month ago while he was backing up his boat doing a twisting motion. Try cyclobenzaprine and ibuprofen with no improvement. Will be referred to ortho. He said right shoulder pain has improved with time. Now it is present when he is reaching out over his shoulder and feels like pins and needles in the right arm. [facility] Medical History (Updated 02/24/25 @ 07:44 by Grazyna Ruffin MD) Hyperlipidemia associated with type 2 diabetes mellitus ETOH abuse Thrombocytopenia Myocardial infarction Elevated cholesterol HTN (hypertension) CAD (coronary artery disease) Surgical History Hx of hand surgery Hx of right inguinal hernia repair H/O colonoscopy History of heart artery stent Social History Housing: House Alcohol intake: never Patient Tobacco Use Status: Never used Tobacco e-Cigarette/Vaping Use: Never Used Second Hand Smoke Exposure: No service: No Current occupational status: employed Current occupation: sales Cognitive needs: No Hearing needs: No Vision needs: No Questionnaire Thrive Questionnaire Date Thrive assessed: 09/12/24 I am a: Patient What is your living situation today?: I have a steady place to live Within the past 12 months, did the food you bought not last and you didn't have the money to get more?: Never true Within the past 12 months, did you worry whether your food would run out before you got money to buy more?: Never true Do you have trouble paying for medicines?: No Do you have trouble getting transportation to medical appointments?: No Do you have trouble paying your heating and electricity bill?: No Do you have trouble taking care of your child, family member or friend?: No Do you have trouble with day-to-day activities such as bathing, preparing meals, shopping, managing finances, etc.?: No Are you currently unemployed and looking for a job?: No Are you interested in more education?: No Currently or been in a relationship where the following occur: No concerns reported THRIVE Score: 0 NINA-7 AMB Questionnaire NINA-7 Date NINA - 7 assessed: 09/19/24 Source: Developed by Drs. Panchito Monreal, Delaney Salgado, Brett Chavez and colleagues, with an educational sidney from [employer]. Review of Systems Const All systems reviewed & are unremarkable except as noted in HPI and below Card Denies chest pain at rest, Denies chest pain with activity, Denies edema, Denies irregular heart rhythm, Denies claudication, Denies dyspnea, Denies dyspnea on exertion, Denies orthopnea, Denies paroxysmal nocturnal dyspnea and Denies slow heart rate Resp Denies cough, Denies dyspnea and Denies dyspnea on exertion Musc Denies atrophy, Denies deformity and Denies limited range of motion Skin/Breast Denies bleeding lesions, Denies changing lesions and Denies rash Physical exam (Primary Care) Vital Signs: Last Vital Signs Temp 97.5 F 02/24/25 07:21 Pulse 99 02/24/25 07:21 BP 144/90 H 02/24/25 07:21 Pulse Ox 97 02/24/25 07:21 Oxygen Delivery Method Room Air 02/24/25 07:21 BMI result Body Mass Index 30.4 BMI Assessment/Plan discussion: High BMI High, discussed plan: lifestyle, weight reduction, dietary and physical activity Tobacco/Smoking Status: Tobacco use Status Tobacco use date assessed 03/18/24 02/24/25 07:28 Patient Tobacco Use Status Never used Tobacco 02/24/25 07:28 e-Cigarette/Vaping Use Never Used 02/24/25 07:28 Thrive Assessment: Date of Thrive Assessment Date Thrive assessed 09/12/24 02/24/25 07:28 Currently or been in a relationship where the following occur: No concerns reported [facility] Head: Yes normal to inspection, Yes normocephalic and Yes atraumatic Ears: external ears normal Eyes General: appearance normal, both eyes and all related structures Eyelids: Yes eyelids normal Conjunctivae: conjunctivae normal Neck Neck: Yes normal visual inspection and Yes supple Resp Effort & Inspection: normal respiratory effort Auscultation: clear to auscultation bilaterally Cardio Jugular venous distension: no JVD Rate: regular rate Rhythm: regular rhythm Heart sounds: S1 normal heart sound present and S2 normal heart sound present GI Inspection: Yes normal to inspection Palpation (GI): Soft to palpation and nontender Auscultation: normal bowel sounds Skin General skin exam: no rashes or lesions noted Neuro General: no focal motor deficits Extrem General: Yes full ROM Psych Appearance: grossly normal Coding Level of Care Code Est Pt Level 3 (37839) Est Pt Prev Care >65y(48639) Diagnoses Physical exam Z00.00 Right shoulder pain M25.511 Time Spent (min) 31 Assessment & Plan Assessment & Plan (1) Physical exam: Code(s): Z00.00 - Encounter for general adult medical examination without abnormal findings Category: Medical (2) Right shoulder pain: Code(s): M25.511 - Pain in right shoulder Category: Medical Plan Repeat physical exam in a year. Keep blood pressure within goal being less than 130/80. Recheck blood pressure with nurse navigator in 3 weeks. Referred to ortho for right shoulder pain. Orders: Referrals Orthopedics Referral M25.511 - Pain in right shoulder
--- OUTSIDE RECORDS SUMMARY | 2025-02-24 07:20 | XMS_ITS | Patient Health Record ---
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: Nonsmoker; alcohol as above Nonsmoker; alcohol as above Problems Problem Type SNOMED Code ICD Code Onset Dates Problem Status W/U Status Risk Notes Problem Colon cancer screening (961478610) Colon cancer screening (Z12.11) Active confirmed Problem Screening for malignant neoplasm of colon (371442406) Encounter for screening for malignant neoplasm of colon (Z12.11) Active confirmed Problem Diverticular disease of colon (523538615) Diverticulosis of large intestine without perforation or abscess without bleeding (K57.30) Active confirmed Problem Preprocedural examination (106168238710576) Preprocedural examination (Z01.818) Active confirmed Problem Thrombocytopenia (297787235) Thrombocytopenia (D69.6) Active confirmed Problem History of alcohol use disorder (situation) (1732922455) History of alcohol abuse (F10.11) Active confirmed Plan Of Treatment Pending Test Test Name Order Date CBC w DIFF 01/12/2023 US abdomen comp w elastography 3 Future Test Test Name Order Date COLONOSCOPY 01/12/2023 Insurance Providers Payer Name Payer Address Payer Phone Subscriber Number Group Number Insured Name Patient Relationship to Insured Coverage Start Date Coverage End Date [facility] [address] [place], [place] [id number] BALWINDER DAUGHERTY Self - patient is the insured Medical (General) History Medical History History ICD Code Hypertension Hypercholesterolemia Incomplete right bundle branch block 201 0 Hx of AR 2002--3 stents plac ed at that time--no problems since then--sees Dr. Kennedy Negative colonoscopy in 03/[address] Collazo EtoH abuse--sober since 08/2014--goes to [facility] Denies DM,CVA,Lung disease,renal disease Thrombocytopenia with a platelet count o f 120,000 in September of 2022 Surgical History Surgery Date(Month/Year) Right inguinal hernia 2010 Right trigger thumb 2015
[2025-02-24 07:21] VITALS: BP 144/90; PULSE 99; TEMP 36.4; O2SAT 97; BMI 30.4
== END 2025-02-24 07:44 | disposition home or self-care (01) ==
LOC: HO.HMCH 07:18
PROVIDERS: PCP Internal Medicine; Visit Provider Internal Medicine
DX: Z00.00 Encounter for general adult medical examination without abnormal findings (principal); I10 Essential (primary) hypertension; M25.511 Pain in right shoulder